=== PATIENT | female | born 1960 | race Two or more races ===

== ENCOUNTER 2022-08-27 10:58 | Outpatient (CLI) | payer OTHER | END 2022-08-27 11:05 | disposition home or self-care (01) | LOC: RAD 10:58 | PROVIDERS: ATTEND Orthopaedic Surgery | DX: M25.561 Pain in right knee (principal); M25.562 Pain in left knee ==

== ENCOUNTER 2023-10-06 19:58 | Emergency (ER) | payer OTHER ==
[~2023-10-06] VITALS: Ht 167.6 cm; Wt 136.1 kg
[2023-10-06 21:55] LABS: HEMATOCRIT 37.2 % (36.0-45.00); HEMOGLOBIN 12.8 g/dL (12.0-15.00); MEAN CELL VOLUME 85.2 fL (80.00-100.00); MEAN CORPUSCULAR HEMOGLOBIN 29.2 pg (27.00-32.0); MEAN CORPUSCULAR HGB CONC 34.3 g/dl (32.0-36.0); PLATELET COUNT 179 K/uL (150-450); RED BLOOD COUNT 4.36 M/uL (4.00-6.00); RED CELL DISTRIBUTION WIDTH 14.3 % (11.5-14.5)
[2023-10-06 22:23] LABS: ALBUMIN 3.2 gm/dL (3.4-5.0); BILIRUBIN TOTAL 0.26 mg/dL (0.3-1.2); CREATININE SERUM 1.15 mg/dL (0.55-1.02); GFR 47.66; GLOBULINA 4.3 G/DL (2.4-3.5); POTASSIUM 4.29 mEq/L (3.5-5.1); TOTAL PROTEIN 7.5 gm/dL (6.4-8.2)
[2023-10-06 23:07] LABS: ABG PH 7.425 (7.35-7.45); ABG PO2 101.8 mmHg (80-100); ABG pCO2 38.9 mmHg (35-45); BASE EXCESS 0.7 mmol/l; Tco2 26.2 mmol/l; allen test SATISFACTORY; puncture site RADIAL LEFT
[2023-10-06 23:08] LABS: o2 21 %
== END 2023-10-07 00:28 | disposition home or self-care (01) ==
LOC: ER 19:58
PROVIDERS: General Practice
DX: J45.901 Unspecified asthma with (acute) exacerbation (principal); I10 Essential (primary) hypertension; E03.9 Hypothyroidism, unspecified; M79.7 Fibromyalgia
CPT/HCPCS: 36415; 71046; 82803; 94640; 96372; 99285; J2920

== ENCOUNTER 2023-10-16 22:18 | Emergency (ER) | payer OTHER ==
[~2023-10-16] VITALS: Ht 167.6 cm; Wt 136.1 kg
== END 2023-10-17 05:01 | disposition home or self-care (01) ==
LOC: ER → EDBD 22:41 → ER 22:41
DX: M54.59 Other low back pain (principal); M54.16 Radiculopathy, lumbar region
CPT/HCPCS: 96365; 99283; J1100; J1885; J2360

== ENCOUNTER 2024-01-05 16:19 | Emergency (ER) | payer OTHER ==
[~2024-01-05] VITALS: Ht 170.2 cm; Wt 113.4 kg
[2024-01-05] MEDS ORDERED: 0.9 % SODIUM CHLORIDE 500 ML IV ONE (18:15)
[2024-01-05] MEDS ORDERED: FAMOTIDINE/PF 20 MG/2 ML VIAL IV ONE (18:15)
[2024-01-05] MEDS ORDERED: ONDANSETRON HCL 2 MG/ML VIAL IV ONE (18:15)
[2024-01-05 18:40] LABS: HEMATOCRIT 35.5 % (36.0-45.00); MEAN CELL VOLUME 86.8 fL (80.00-100.00); MEAN CORPUSCULAR HEMOGLOBIN 29.2 pg (27.00-32.0); MEAN CORPUSCULAR HGB CONC 33.7 g/dl (32.0-36.0); PLATELET COUNT 192 K/uL (150-450)
[2024-01-05 19:03] LABS: PH,URINE 6.5 (5.0-8.0); URINE APPEARANCE Clear; URINE BILIRRUBIN Negative (NEGATIVE); URINE BLOOD Negative; URINE COLOR Yellow; URINE GLUCOSE Negative (NEGATIVE); URINE LEUKOCYTE Trace; URINE NITRATE Negative; URINE PROTEIN Trace (NEGATIVE)
[2024-01-05 19:05] LABS: URINE EPITHELIAL CELLS 22.6 uL (0.0-38.8); URINE RBC 6.3 uL (0.0-20.8); URINE WBC 4.7 uL (0.0-23.2)
[2024-01-05 19:35] LABS: ALBUMIN 3.5 gm/dL (3.4-5.0); BILIRUBIN TOTAL 0.59 mg/dL (0.3-1.2); CALCIUM 9.5 mg/dL (8.5-10.1); CREATININE SERUM 1.02 mg/dL (0.55-1.02); GFR 54.91; GLOBULINA 3.8 G/DL (2.4-3.5); POTASSIUM 3.73 mEq/L (3.5-5.1); TOTAL PROTEIN 7.3 gm/dL (6.4-8.2)
[2024-01-05] MEDS ORDERED: ONDANSETRON HCL4 MG PO (20:22)
[2024-01-05] MEDS ORDERED: PEPCID AC20 MG PO (20:22)
== END 2024-01-05 20:33 | disposition home or self-care (01) ==
LOC: ER
PROVIDERS: Nurse Practitioner Family
DX: T50.995A Adverse effect of other drugs, medicaments and biological substances, initial encounter (principal); Y92.89 Other specified places as the place of occurrence of the external cause; I10 Essential (primary) hypertension; E03.9 Hypothyroidism, unspecified; Z87.09 Personal history of other diseases of the respiratory system
CPT/HCPCS: 36415; 96365; 99283; J2405; J3490